=== PATIENT | male | born 1955 | race Caucasian/White ===

== ENCOUNTER 2020-07-10 06:22 | Day surgery (SDC) | payer MEDICARE, OTHER ==
[~2020-07-10 06:22] MED LIST: Midazolam 1 MG/ML 2 ML SDV ONE; fentaNYL 100 MCG/2 ML SDV ONE
[2020-07-10] MEDS ORDERED: Midazolam 1 MG/ML 2 ML SDV IV ONE ×7 (06:23→07:25)
[2020-07-10] MEDS ORDERED: fentaNYL 100 MCG/2 ML SDV IV ONE ×4 (06:23→07:27)
[2020-07-10] MEDS ORDERED: Dextrose 5%-0.45% NaCl 1,000 ML IV SCH (06:50)
--- NOTE | 2020-07-10 13:19 | OR ---
DATE: 07/10/2020 PROCEDURE PERFORMED: Total colonoscopy. INSTRUMENT USED: PCF-H190DL Olympus video colonoscope. PREMEDICATIONS: Fentanyl 150 mcg intravenous, Versed 4 mg intravenous. Nasal O2 cannula. The procedure was done under pulse oximetry, BP recording, and quality assurance monitor final. INDICATION: The patient with rectal bleeding and progressive constipation. Colonoscopic examination is done for detection of any polypoid lesions and removal, endoscopic hemostasis therapy if needed. DESCRIPTION OF PROCEDURE: Initial rectal exam was unremarkable. Rigid anoscopy showed small internal hemorrhoids without bleeding from them. The colonoscope was passed with ease up to the ileocecal area. Photographs were taken of the normal-appearing cecum, identified by landmarks of appendiceal orifice and double-bulged ileocecal folds. No bleeding was noted from any of the visualized areas at the commencement of the examination. The bowel preparation was found to be adequate, [place] scale 2 in all the regions, total score 6. No stricture, no vascular ectasia, and no large isolated ulcerations seen. No evidence of diffuse inflammatory bowel disease in the form of friability, contact bleeding, or ulcerations. No polyp or tumor mass identified. Probing the proximal sides of folds and flexures using adequate distention and clearing up the stool material, withdrawal of the scope was made. Cecum to rectum time over 6 minutes. No bleeding was noted from any of the visualized areas at the completion of examination. IMPRESSION: Internal hemorrhoids. The patient tolerated the procedure well. [facility] /[id number]
--- NOTE | 2020-07-11 09:26 | LETTER ---
07/10/[address] [facility] [address] [place] [address] RE: PABLO GARCIA : [address] Alvarez: Mr. Pablo Garcia had colonoscopic examination done this morning, and he tolerated the procedure well. I herewith send a copy of the endoscopy note and photographs for your review. Thank you. Sincerely, [facility] /[id number]
== END 2020-07-10 09:25 | disposition home or self-care (01) ==
LOC: DL.ENDO 06:22
PROVIDERS: ATTEND Internal Medicine Gastroenterology
DX: K59.09 Other constipation (principal); K64.8 Other hemorrhoids; F41.1 Generalized anxiety disorder; F32.9 Major depressive disorder, single episode, unspecified; K21.9 Gastro-esophageal reflux disease without esophagitis; N40.0 Benign prostatic hyperplasia without lower urinary tract symptoms; D45 Polycythemia vera; Z98.890 Other specified postprocedural states; Z88.8 Allergy status to other drugs, medicaments and biological substances
CPT/HCPCS: J2250; J3010; J7042

== ENCOUNTER 2021-01-11 13:48 | Emergency (ER) | payer OTHER, MEDICARE ==
[2021-01-11] MEDS: Ondansetron 4 MG/2 ML SDV IVPUSH ONE ×2 (14:00→16:06)
--- NOTE | 2021-01-11 14:15 | EDM.PDOC ---
"<Joanna German M - Last Filed: 01/11/21 14:58> ED HPI GENERAL MEDICAL PROBLEM - General Chief Complaint: General Stated Complaint: VOMITING / SWEATING Time Seen by Provider: 01/11/21 14:00 - Related Data Allergies Allergy/AdvReac Type Severity Reaction Status Date / Time nitrous oxide Allergy Severe Tachycardia Verified 01/11/21 14:10 Home Meds: Home Meds Acetaminophen [Tylenol Extra Strength] 1,000 mg PO .Q8H 07/22/19 [History] Aspirin [Ecotrin EC] 81 mg PO DAILY 07/22/19 [History] Finasteride [Proscar] 5 mg PO DAILY 07/22/19 [History] LORazepam [Ativan] 1 mg PO DAILY 07/22/19 [History] Omeprazole 20 mg PO BID 07/22/19 [History] buPROPion [Wellbutrin SR] 450 mg PO DAILY 07/22/19 [History] Hydroxyurea [Hydrea] 500 mg PO BID 07/09/20 [History] Course - Radiology Interpretation Free Text/Narrative:: [facility] Final Radiology Report Call: [phone] assistance Online chat: [email or web address] Name: JOANNA GARCIA Age: 65Years M Date: 01/11/2021 SSN: -- : [id number] Study: CT HEAD WO CONT Requesting Physician: Ortega Hernandez Images: 150 Addl Studies: Provided Clinical History: vertigo Contrast: Without Contrast Medium: Contrast Amount: Contrast Method: Page 1 of 2 PROCEDURE INFORMATION: Exam: CT Head Without Contrast Exam date and time: 01/11/2021 2:31 PM Age: 65 years old Clinical indication: Other: Vertigo TECHNIQUE: Imaging protocol: Computed tomography of the head without contrast. Radiation optimization: All CT scans at this facility use at least one of these dose optimization techniques: automated exposure control; mA and/or kV adjustment per patient size (includes targeted exams where dose is matched to clinical indication); or iterative reconstruction. COMPARISON: No relevant prior studies available. FINDINGS: Brain: There is no significant midline shift. There is no evidence of acute hemorrhage within the brain parenchyma or the subarachnoid space. No abnormal attenuation is noted within the brain parenchyma. Cerebral ventricles: The ventricular system is normal in size and configuration. Paranasal sinuses: There is opacity of a few of the left ethmoid air cells. The remainder of the visualized paranasal sinuses are unremarkable. Mastoid air cells: The mastoid sinuses are normal. Orbital cavity: The orbits are normal. Bones/joints: The skull is normal. Soft tissues: The extracranial soft tissues are normal. IMPRESSION: No acute abnormality. JOANNA GARCIA | Final Radiology Report CONFIDENTIALITY STATEMENT This report is intended only for use by the referring physician, and only in accordance with law. If you received this in error, call [phone]. Page 2 of 2 Thank you for allowing us to participate in the care of your patient. Dictated and Authenticated by: Rudi Zaman MD 01/11/2021 2:55 PM Central Time ([place] & [place]) Departure - Departure Disposition: Home, Self-Care 01 Clinical Impression: Benign paroxysmal positional vertigo Qualifiers: Laterality: unspecified laterality Qualified Code(s): H81.10 - Benign paroxysmal vertigo, unspecified ear - Discharge Information Forms: ED Department Discharge Additional Instructions: RX: Meclizine RX: Zofran Follow up with your primary care facility about the possibility of having BPPV. If any new symptoms or concerns develop contact your primary care facility or return to the ER. <Ortega Hernandez - Last Filed: 01/11/21 18:57> ED HPI GENERAL MEDICAL PROBLEM - General Source of Information: Reports: Patient History Limitations: Reports: No Limitations - History of Present Illness INITIAL COMMENTS - FREE TEXT/NARRATIVE: 65 y/o M c/o vertigo, vomiting, sweating and [place] since 6 am this morning. Has had similar episodes in the past. Pt states he got up this morning turned his head suddenly to the left and instantly became dizzy. Denies trauma. Had a stent placed in his brain 2 weeks ago to treat a pulsatile tinnitus with no complications. He is on Plavix. Is being treated for polycythemia vera. Denies fever, chills, cp, db, abd pn, diff voiding, drugs, etoh. Onset: Today, Sudden Duration: Hour(s): Location: Reports: Head Severity: Severe Past Medical History HEENT History: Reports: Hard of Hearing Cardiovascular History: Reports: None Respiratory History: Reports: None, Sleep Apnea Gastrointestinal History: Reports: Chronic Constipation, GERD, Other (See Below) Other Gastrointestinal History: HX OF RECTAL BLEEDING Genitourinary History: Reports: BPH, Renal Calculus Musculoskeletal History: Reports: Back Pain, Chronic Neurological History: Reports: Vertigo Psychiatric History: Reports: Anxiety, Depression, PTSD Endocrine/Metabolic History: Reports: None Hematologic History: Reports: None, Other (See Below) Other Hematologic History: polycythemia Immunologic History: Reports: Immunosuppression Oncologic (Cancer) History: Reports: Other (See Below) Other Oncologic History: blood cancer Dermatologic History: Reports: None - Infectious Disease History Infectious Disease History: Reports: None - Past Surgical History Head Surgeries/Procedures: Reports: None HEENT Surgical History: Reports: Eye Surgery, Naso-Sinus Surgery Other HEENT Surgeries/Procedures: stent in brain Cardiovascular Surgical History: Reports: None Respiratory Surgical History: Reports: None GI Surgical History: Reports: Colonoscopy, Hernia, Inguinal Male Surgical History: Reports: None Neurological Surgical History: Reports: C-Spine, Lumbar Spine Other Neurological Surgeries/Procedures: stent in brain Musculoskeletal Surgical History: Reports: Other (See Below) Other Musculoskeletal Surgeries/Procedures:: S/P BUNIONECTOMY Social & Family History - Family History Family Medical History: No Pertinent Family History - Tobacco Use Tobacco Use Status *Q: Never Tobacco User - Caffeine Use Caffeine Use: Reports: Energy Drinks Caffeine Use Comment: 2 cups daily - Recreational Drug Use Recreational Drug Use: No ED ROS GENERAL - Review of Systems Review Of Systems: Comprehensive ROS is negative, except as noted in HPI. ED EXAM, GENERAL - Physical Exam Exam: See Below General Appearance: Alert, Moderate Distress Ears: Normal External Exam, Normal Canal, Hearing Grossly Normal, Normal TMs Course - Vital Signs Last Recorded V/S: Last Vital Signs Temp 97.6 F 01/11/21 14:37 Pulse 60 01/11/21 14:37 Resp 23 H 01/11/21 14:37 BP 135/68 01/11/21 14:37 Pulse Ox 100 01/11/21 14:37 - Orders/Labs/Meds Labs: Laboratory Tests 01/11/21 01/11/21 01/11/21 Range/Units 13:53 13:54 13:54 WBC 18.1 H (5.0-10.0) 10^3/uL RBC 6.84 H (4.6-6.2) 10^6/uL Hgb 12.4 L (14.0-18.0) g/dL Hct 42.9 (40.0-54.0) % MCV 62.7 L (80-100) fL MCH 18.1 L (27.0-34.0) pg MCHC 28.9 L (33.0-35.0) g/dL Plt Count 685 H (150-450) 10^3/uL Neut % (Auto) 73.7 (42.2-75.2) % Lymph % (Auto) 14.6 L (20.5-50.1) % Worth % (Auto) 6.7 (2-8) % Eos % (Auto) 2.1 (1.0-3.0) % Baso % (Auto) 2.9 H (0.0-1.0) % Add Manual Diff Yes Neutrophils % (Manual) 67 (42-75) % Lymphocytes % (Manual) 17 L (20-50) % Monocytes % (Manual) 6 (2-8) % Eosinophils % (Manual) 5 H (1-3) % Basophils % (Manual) 5 Platelet Estimate Increased Hypochromasia 2+ moderate Microcytosis 2+ moderate Target Cells 1+ slight PT (9.0-12.0) SEC INR (0.9-1.2) Sodium 133 L (136-145) mmol/L Potassium 4.0 (3.5-5.1) mmol/L Chloride 98 (98-107) mmol/L Carbon Dioxide 24 (21-32) mmol/L Anion Gap 15.0 H (7-13) mEq/L BUN 15 (7-18) mg/dL Creatinine 1.07 (0.70-1.30) mg/dL Est Cr Clr Drug Dosing TNP Estimated GFR (MDRD) > 60 BUN/Creatinine Ratio 14.0 (No establ ref range) Glucose 146 H (70-99) mg/dL POC Glucose 137 H (70-99) mg/dL Calcium 8.8 (8.5-10.1) mg/dL Magnesium 2.0 (1.8-2.4) mg/dL Total Bilirubin 1.1 H (0.2-1.0) mg/dL AST 20 (15-37) U/L ALT 21 (16-63) U/L Alkaline Phosphatase 71 (46-116) U/L Troponin I High Sens < 4 (<=76) pg/mL Total Protein 8.8 H (6.4-8.2) g/dL Albumin 4.3 (3.4-5.0) g/dL Globulin 4.5 Albumin/Globulin Ratio 1.0 Amylase 49 (25-115) U/L Lipase 77 (73-393) U/L 01/11/21 Range/Units 13:54 WBC (5.0-10.0) 10^3/uL RBC (4.6-6.2) 10^6/uL Hgb (14.0-18.0) g/dL Hct (40.0-54.0) % MCV (80-100) fL MCH (27.0-34.0) pg MCHC (33.0-35.0) g/dL Plt Count (150-450) 10^3/uL Neut % (Auto) (42.2-75.2) % Lymph % (Auto) (20.5-50.1) % Worth % (Auto) (2-8) % Eos % (Auto) (1.0-3.0) % Baso % (Auto) (0.0-1.0) % Add Manual Diff Neutrophils % (Manual) (42-75) % Lymphocytes % (Manual) (20-50) % Monocytes % (Manual) (2-8) % Eosinophils % (Manual) (1-3) % Basophils % (Manual) Platelet Estimate Hypochromasia Microcytosis Target Cells PT 11.3 (9.0-12.0) SEC INR 1.1 (0.9-1.2) Sodium (136-145) mmol/L Potassium (3.5-5.1) mmol/L Chloride (98-107) mmol/L Carbon Dioxide (21-32) mmol/L Anion Gap (7-13) mEq/L BUN (7-18) mg/dL Creatinine (0.70-1.30) mg/dL Est Cr Clr Drug Dosing Estimated GFR (MDRD) BUN/Creatinine Ratio (No establ ref range) Glucose (70-99) mg/dL POC Glucose (70-99) mg/dL Calcium (8.5-10.1) mg/dL Magnesium (1.8-2.4) mg/dL Total Bilirubin (0.2-1.0) mg/dL AST (15-37) U/L ALT (16-63) U/L Alkaline Phosphatase (46-116) U/L Troponin I High Sens (<=76) pg/mL Total Protein (6.4-8.2) g/dL Albumin (3.4-5.0) g/dL Globulin Albumin/Globulin Ratio Amylase (25-115) U/L Lipase (73-393) U/L Meds: Medications Discontinued Medications Generic Name Dose Route Start Last Admin Trade Name Freq PRN Reason Stop Dose Admin Diazepam 2.5 mg 01/11/21 15:55 01/11/21 16:10 Diazepam 10 Mg/2 Ml Syringe IVPUSH 01/11/21 15:56 2.5 mg ONETIME ONE Administration Diazepam 2.5 mg 01/11/21 18:06 01/11/21 18:22 Diazepam 10 Mg/2 Ml Syringe IVPUSH 01/11/21 18:07 2.5 mg ONETIME ONE Administration Meclizine HCl 12.5 mg 01/11/21 13:59 01/11/21 15:25 Meclizine 12.5 Mg Tab PO 01/11/21 14:00 12.5 mg ONETIME ONE Administration Metoclopramide HCl 10 mg 01/11/21 18:08 01/11/21 18:18 Metoclopramide 10 Mg/2 Ml Sdv IVPUSH 01/11/21 18:09 10 mg ONETIME ONE Administration Ondansetron HCl 4 mg 01/11/21 14:00 01/11/21 14:00 Ondansetron 4 Mg/2 Ml Sdv IVPUSH 01/11/21 14:01 4 mg ONETIME ONE Administration Ondansetron HCl 4 mg 01/11/21 15:57 01/11/21 16:06 Ondansetron 4 Mg/2 Ml Sdv IVPUSH 01/11/21 15:58 4 mg ONETIME ONE Administration Ondansetron HCl 4 mg 01/11/21 18:05 Ondansetron 4 Mg/2 Ml Sdv IVPUSH 01/11/21 18:06 ONETIME ONE - Re-Assessments/Exams Free Text/Narrative Re-Assessment/Exam: 01/11/21 18:44 The pt expresses releif in symptoms follow with last dose of valium and Reglan. I will provider him an RX: for meclizine and zofran and have him follow up with his primary care physcian for further evaluation. Given the negative findings here today and the fact that the pts symptoms began with a sudden change in head position I find it likely that the pt is experiencing BPPV. I have advised the pt of this and he will discuss it with his PCP. Departure - Departure Time of Disposition: 18:47 Condition: Good - Discharge Information *PRESCRIPTION DRUG MONITORING PROGRAM REVIEWED*: Not Applicable *COPY OF PRESCRIPTION DRUG MONITORING REPORT IN PATIENT ISABEL: Not Applicable Sepsis Event Note (ED) - Evaluation Sepsis Screening Result: No Definite Risk - Focused Exam Vital Signs: Vital Signs Temp Pulse Resp BP Pulse Ox 01/11/21 14:37 97.6 F 60 23 H 135/68 100 01/11/21 14:05 96.4 F L 62 23 H 131/76 98"
[2021-01-11 14:33] LABS: CHLORIDE,CL 98 mmol/L (98-107); SODIUM,NA 133 mmol/L (136-145)
--- NOTE | 2021-01-11 14:55 | CT ---
PROCEDURE INFORMATION: Exam: CT Head Without Contrast Exam date and time: 01/11/2021 2:31 PM Age: 65 years old Clinical indication: Other: Vertigo TECHNIQUE: Imaging protocol: Computed tomography of the head without contrast. Radiation optimization: All CT scans at this facility use at least one of these dose optimization techniques: automated exposure control; mA and/or kV adjustment per patient size (includes targeted exams where dose is matched to clinical indication); or iterative reconstruction. COMPARISON: No relevant prior studies available. FINDINGS: Brain: There is no significant midline shift. There is no evidence of acute hemorrhage within the brain parenchyma or the subarachnoid space. No abnormal attenuation is noted within the brain parenchyma. Cerebral ventricles: The ventricular system is normal in size and configuration. Paranasal sinuses: There is opacity of a few of the left ethmoid air cells. The remainder of the visualized paranasal sinuses are unremarkable. Mastoid air cells: The mastoid sinuses are normal. Orbital cavity: The orbits are normal. Bones/joints: The skull is normal. Soft tissues: The extracranial soft tissues are normal. IMPRESSION: No acute abnormality.
[2021-01-11] MEDS: Meclizine 12.5 MG Tab PO ONE (15:25)
[2021-01-11] MEDS ORDERED: Ondansetron 4 MG/2 ML SDV IVPUSH ONE (18:05)
[2021-01-11] MEDS: Metoclopramide 10 MG/2 ML SDV IVPUSH ONE (18:18)
== END 2021-01-11 19:10 | disposition home or self-care (01) ==
LOC: DL.ED 13:48
DX: H81.10 Benign paroxysmal vertigo, unspecified ear (principal)
CPT/HCPCS: 36415; 70450; 80053; 82150; 82947; 83690; 83735; 84484; 85025; 85610; 93005; 96374; 96375; 96376; 99284; A9270; J2405; J2765; J3360

== ENCOUNTER 2024-03-14 09:49 | Emergency (ER) | payer OTHER | END 2024-03-14 11:40 | disposition home or self-care (01) | LOC: DL.ED 09:49 | DX: S92.355A Nondisplaced fracture of fifth metatarsal bone, left foot, initial encounter for closed fracture (principal); K21.9 Gastro-esophageal reflux disease without esophagitis; Z88.5 Allergy status to narcotic agent; Z88.8 Allergy status to other drugs, medicaments and biological substances; Z79.82 Long term (current) use of aspirin; Z79.899 Other long term (current) drug therapy; X50.1XXA Overexertion from prolonged static or awkward postures, initial encounter | CPT/HCPCS: 73630-LT; 99283 ==